=== PATIENT | female | born 1995 | race American Indian/Alaskan Native ===

== ENCOUNTER 2018-07-06 14:33 | Emergency (ER) | payer OTHER, BC ==
[2018-07-06 15:07] VITALS: RESP 18; TEMP 98.1; O2SAT 100
--- NOTE | 2018-07-06 16:25 | ED PDOC ---
Arrival/HPI - General Chief Complaint: Lower Extremity Problem/Injury Time Seen by Provider: 07/06/18 15:48 Historian: Patient - History of Present Illness Narrative History of Present Illness (Text): 07/06/18 16:22 23yo female with no pmhx who present with complaint of left ankle pain s/p trauma yesterday. States she twisted her foot yesterday, while stepping out of a bus yesterday. States she took Ibuprofen 800mg yesterday with mild pain. Ambulating with a limp. Denies any other complaint. Past Medical History - Provider Review Nursing Documentation Reviewed: Yes - Reproductive Currently : No - Psychiatric Hx Substance Use: No - Surgical History Hx Tonsillectomy: Yes Family/Social History - Physician Review Nursing Documentation Reviewed: Yes Family/Social History: Unknown Family HX Smoking Status: Never Smoked Hx Alcohol Use: No Hx Substance Use: No Allergies/Home Meds Allergies/Adverse Reactions: Allergies No Known Allergies Allergy (Verified 07/06/18 15:07) Review of Systems - Physician Review All systems were reviewed & negative as marked: Yes - Review of Systems Constitutional: Normal Eyes: Normal ENT: Normal Respiratory: Normal Cardiovascular: Normal Gastrointestinal: Normal Genitourinary Female: Normal Musculoskeletal: Arthralgias (Left ankle pain) Skin: Normal Neurological: Normal Endocrine: Normal Hemo/Lymphatic: Normal Psychiatric: Normal Physical Exam Vital Signs Reviewed: Yes Vital Signs Temp Pulse Resp BP Pulse Ox 07/06/18 15:04 98.1 F 91 H 18 141/91 H 100 Temperature: Afebrile Blood Pressure: Normal Pulse: Regular Respiratory Rate: Normal Appearance: Positive for: Well-Appearing, Non-Toxic, Comfortable Pain Distress: None Mental Status: Positive for: Alert and Oriented X 3 - Systems Exam Head: Present: Atraumatic, Normocephalic Pupils: Present: PERRL Extroacular Muscles: Present: EOMI Conjunctiva: Present: Normal Mouth: Present: Moist Mucous Membranes Neck: Present: Normal Range of Motion Respiratory/Chest: Present: Clear to Auscultation, Good Air Exchange. No: Respiratory Distress, Accessory Muscle Use Cardiovascular: Present: Regular Rate and Rhythm, Normal S1, S2. No: Murmurs Abdomen: No: Tenderness, Distention, Peritoneal Signs Back: Present: Normal Inspection Upper Extremity: Present: Normal Inspection. No: Cyanosis, Edema Lower Extremity: Present: NORMAL PULSES, Normal ROM, Tenderness (Left lateral ankle), Swelling (Left lateral ankle), Neurovascularly Intact. No: Edema, Deformity Neurological: Present: GCS=15, CN II-XII Intact, Speech Normal Skin: Present: Warm, Dry, Normal Color. No: Rashes Psychiatric: Present: Alert, Oriented x 3, Normal Insight, Normal Concentration Medical Decision Making ED Course and Treatment: 07/07/18 18:02 Pt in ED for stated history. Left ankle xray IMPRESSION: No definitive radiographic evidence of acute displaced fracture nor dislocation. Moderate to significant soft tissue swelling over the lateral malleolus. If symptoms persist, occult fracture or internal derangement suspected clinically consider follow-up MRI. Tobi wrap placed. crutches given result was DW the pt and she was advised to RICE ankle and f/u with ortho - RAD Interpretation Radiology Orders: 07/06/18 16:02 ANKLE LEFT 3 VIEWS ROUTINE [RAD] Stat - Medication Orders Current Medication Orders: Discontinued Medications Ibuprofen (Motrin Tab) 600 mg PO STAT STA Stop: 07/06/18 16:03 Last Admin: 07/06/18 16:10 Dose: 600 mg MAR Pain/Vitals Document 07/06/18 16:10 BLAZE (Rec: 07/06/18 16:11 BLAZE [id number]) Pain Reassessment Is This A Pain ReAssessment? Yes Presence of Pain Presence of Pain Yes Pain Scale Used Protocol: PSCALES Pain Scale Used Numeric Location Left, Right or Bilateral Left Pain Location Body Site Ankle Intensity 4 Scale Used Numeric Disposition/Present on Arrival - Present on Arrival Any Indicators Present on Arrival: No History of DVT/PE: No History of Uncontrolled Diabetes: No Urinary Catheter: No History of Decub. Ulcer: No History Surgical Site Infection Following: None - Disposition Have Diagnosis and Disposition been Completed?: Yes Diagnosis: Ankle sprain Disposition: HOME/ ROUTINE Disposition Time: 17:20 Patient Plan: Discharge Condition: STABLE Discharge Instructions (ExitCare): Ankle Sprain (DC) Additional Instructions: Rest, Ice, compress and elevate ankle follow up with your doctor/orthopedist Return to ED for any new or worsening symptoms Prescriptions: RX: Ibuprofen [Motrin Tab] 600 mg PO Q6 #15 tab Referrals: Rudolph Eldridge DO [Staff Provider] - Follow up with primary Forms: [employer] (Samoan), WORK NOTE
--- NOTE | 2018-07-06 17:25 | RAD ---
Date of service: 07/06/2018 PROCEDURE: Left Ankle Radiographs. HISTORY: ankle pain s/p trauma COMPARISON: None available. FINDINGS: BONES: No definitive radiographic evidence of acute displaced fracture nor dislocation. If symptoms persist, occult fracture or internal derangement suspected clinically consider follow-up MRI. JOINTS: Normal. No osteoarthritis. Ankle mortise maintained. Talar dome intact SOFT TISSUES: Moderate soft tissue swelling overlies the lateral malleolus. OTHER FINDINGS: None. IMPRESSION: No definitive radiographic evidence of acute displaced fracture nor dislocation. Moderate to significant soft tissue swelling over the lateral malleolus. If symptoms persist, occult fracture or internal derangement suspected clinically consider follow-up MRI.
[2018-07-06 17:41] VITALS: BP 138/85; PULSE 85
== END 2018-07-06 17:43 | disposition home or self-care (01) ==
LOC: ED 14:33
DX: S93.402A Sprain of unspecified ligament of left ankle, initial encounter (principal); X50.1XXA Overexertion from prolonged static or awkward postures, initial encounter